=== PATIENT | male | born 1975 | race Caucasian/White ===

== ENCOUNTER 2020-08-26 19:37 | Emergency (ER) | payer OTHER ==
[~2020-08-26] VITALS: Ht 188 cm; Wt 102.1 kg
[2020-08-26] MEDS ORDERED: MULTI-VITAMIN1 EACH PO (20:08)
[2020-08-26] MEDS ORDERED: ALLOPURINOL100 MG (20:08)
[2020-08-26] MEDS ORDERED: AUGMENTIN 875-1 EACH PO (20:43)
== END 2020-08-26 21:13 | disposition home or self-care (01) ==
LOC: ED 19:37
DX: S61.452A Open bite of left hand, initial encounter (principal); S61.152A Open bite of left thumb with damage to nail, initial encounter; W54.0XXA Bitten by dog, initial encounter; M10.9 Gout, unspecified; Z79.899 Other long term (current) drug therapy
CPT/HCPCS: 90471; 90715; 99283-25